=== PATIENT | female | born 1995 | race Hispanic/Latino ===

== ENCOUNTER 2018-10-24 00:29 | Emergency (ER) | payer BC ==
[2018-10-24 03:22] LABS: SQUAMOUS EPITHIAL 5 /hpf (0-5); URINE BACTERIA RARE (<OCC); URINE BILIRUBIN NEGATIVE (NEGATIVE); URINE BLOOD SMALL (NEGATIVE); URINE CLARITY SLIGHTY-CLOUDY (Clear); URINE COLOR YELLOW (YELLOW); URINE GLUCOSE (UA) NEG (NEGATIVE); URINE LEUKOCYTE ESTERASE NEG Leu/uL (Negative); URINE PROTEIN 100 mg/dL (NEGATIVE)
--- NOTE | 2018-10-24 03:56 | ED PDOC ---
History of Present Illness History of Present Illness: Patient is a 23 year old female with past medical history of recurrent UTI's who presents with fever and body aches since Monday. She denies Nausea, vomiting,diarrhea, or urinary symptoms. PAtient received flu vaccination 04/2018 HPI: Influenza Time Seen by Provider: 10/24/18 01:18 Chief Complaint: Fever Past Medical History Reviewed: Historical Data, Nursing Documentation, Vital Signs Vital Signs: Last Vital Signs Temp 102.4 F H 10/24/18 02:50 Pulse 122 H 10/24/18 01:03 Resp 19 10/24/18 01:03 BP 116/76 10/24/18 01:03 Pulse Ox 96 10/24/18 01:03 - Medical History PMH: Migraine - Surgical History Surgical History: No Surg Hx - Family History Family History: States: No Known Family Hx - Social History Alcohol: None Drugs: Denies - Allergies Allergies/Adverse Reactions: Allergies Allergy/AdvReac Type Severity Reaction Status Date / Time No Known Allergies Allergy Verified 10/24/18 01:05 Review of Systems ROS Statement: Except As Marked, All Systems Reviewed And Found Negative Constitutional: Positive for: Fever Musculoskeletal: Positive for: Other (myalgias) Physical Exam - Reviewed Nursing Documentation Reviewed: Yes Vital Signs Reviewed: Yes - Physical Exam Appears: Positive for: Well, Non-toxic, No Acute Distress Skin: Positive for: Normal Color, Warm, Dry Eye Exam: Positive for: Normal appearance, EOMI, PERRL Neck: Positive for: Normal, Painless ROM, Supple Cardiovascular/Chest: Positive for: Regular Rate, Rhythm, Tachycardia. Negative for: Edema, JVD Gastrointestinal/Abdominal: Positive for: Normal Exam, Bowel Sounds, Soft. Negative for: Tenderness Back: Positive for: Normal Inspection. Negative for: L CVA Tenderness, R CVA Tenderness Extremity: Positive for: Normal ROM. Negative for: Tenderness, Pedal Edema Lymphatic: Positive for: Normal Exam Neurological/Psych: Positive for: Awake, Alert, Oriented, Other (no focal deficits) Medical Decision Making Medical Decision Makin yo fermale with flu like symptoms UA, Influenza ordered 4AM PAtient afebrile Labs dhow no clinically significant abnormalities stable for discharge Diagnosis Flu like illness - ECG O2 Sat by Pulse Oximetry: 96 Disposition - Clinical Impression Clinical Impression: Flu-like symptoms - Disposition Disposition: Routine/Home Disposition Time: 04:00 Condition: STABLE Instructions: Flu, Adult (DC) Forms: [employer] ([place])
[2018-10-24 04:03] VITALS: BP 100/62; PULSE 93; RESP 16; TEMP 99.3
[2018-10-24 04:11] VITALS: O2SAT 96
== END 2018-10-24 04:18 | disposition home or self-care (01) ==
LOC: H.ER 00:29
DX: J11.1 Influenza due to unidentified influenza virus with other respiratory manifestations (principal)